=== PATIENT | female | born 1970 | race African-American/Black ===

== ENCOUNTER → 2022-10-17 | Outpatient (CLI) | payer MEDICAID | LOC: COL.PUL 11:16 | DX: J30.2 Other seasonal allergic rhinitis (principal); L20.84 Intrinsic (allergic) eczema ==

== ENCOUNTER 2024-04-03 13:41 | Emergency (ER) | payer MEDICARE, MEDICAID ==
[~2024-04-03] VITALS: Ht 170.2 cm; Wt 104.5 kg
[2024-04-03 13:59] VITALS: TEMP 98.4
[2024-04-03] MEDS ORDERED: ANUSOL-HC SUPPO25 MG RC (14:21)
[2024-04-03] MEDS ORDERED: ANUSOL HC CREAM30 GM TP (14:21)
[2024-04-03 14:30] VITALS: BP 167/125; PULSE 112
[2024-04-04] MEDS ORDERED: CLEOCIN HCL300 MG PO (13:42)
[2024-04-04] MEDS ORDERED: NORCO 325 MG-51 TAB PO (13:52)
== END 2024-04-03 14:30 | disposition home or self-care (01) ==
LOC: COL.ER 13:41
DX: K64.4 Residual hemorrhoidal skin tags (principal)

== ENCOUNTER 2024-04-04 09:24 | Emergency (ER) | payer MEDICARE, MEDICAID ==
[~2024-04-04] VITALS: Ht 170.2 cm; Wt 107.7 kg
[~2024-04-04 09:24] MED LIST: ANUSOL HC CREAM30 GM TP; ANUSOL-HC SUPPO25 MG RC
[2024-04-04] MEDS ORDERED: NS 1,000 ML IV ONE (10:30)
[2024-04-04] MEDS ORDERED: Morphine 4 MG/ML VIAL IV ONE (10:30)
[2024-04-04 10:52] LABS: BASO # 0.1 K/mm3 (0.0-0.2); BASO % 0.4 % (0.0-2.0); EOS # 0.1 K/mm3 (0.0-0.7); EOS % 0.9 % (0.0-4.0); GRAN # 12.7 K/mm3 (1.4-6.5); GRAN % 80.2 % (42.2-75.2); HEMATOCRIT 46.6 % (37.0-47.0); HEMOGLOBIN 15.2 g/dl (12.5-16.0); LYMPH # 2.2 K/mm3 (1.2-3.4); LYMPH % 13.6 % (20.0-51.0); MEAN CELL VOLUME 94 fl (80.0-100.0); MEAN CORPUSCULAR HEMOGLOBIN 31 pg (27-31); MEAN CORPUSCULAR HGB CONC 33 g/dl (33.0-37.0); MEAN PLATELET VOLUME 10.2 fl (7.4-10.4); MONO # 0.7 K/mm3 (0.1-0.6); MONO % 4.6 % (1.7-9.3); PLATELET COUNT 368 K/mm3 (130-400); RED BLOOD COUNT 4.95 M/mm3 (4.10-5.30); REDCELL DISTRIBUTION WIDTH-CV 12.9 % (11.5-14.5)
[2024-04-04 11:26] LABS: ALBUMIN 3.6 g/dL (3.5-5.0); BILIRUBIN,TOTAL 0.4 mg/dL (0.2-1.2); CALCIUM 9.7 mg/dL (8.4-10.2); CREATININE, serum 0.78 mg/dL (0.57-1.11); POTASSIUM 3.7 mEq/L (3.5-4.5); TOTAL PROTEIN 8.2 g/dl (6.2-8.1)
[2024-04-04] MEDS ORDERED: Iohexol 300 - 100 ML VIAL IV ONE (12:26)
[2024-04-04] MEDS ORDERED: NS 100 ML IV SCH (12:26)
[2024-04-04] MEDS ORDERED: CLEOCIN HCL300 MG PO (13:42)
[2024-04-04] MEDS ORDERED: NORCO 325 MG-51 TAB PO (13:52)
[2024-04-04 14:01] VITALS: BP 155/95; PULSE 87; TEMP 98.3
== END 2024-04-04 14:01 | disposition home or self-care (01) ==
LOC: COL.ER 09:24
PROVIDERS: Physician Assistant
DX: K62.89 Other specified diseases of anus and rectum (principal); E66.9 Obesity, unspecified; Z68.37 Body mass index [BMI] 37.0-37.9, adult
CPT/HCPCS: J2270; J7030; Q9967